=== PATIENT | female | born 1945 | race Caucasian/White ===

== ENCOUNTER → 2017-03-04 | Outpatient (CLI) | payer MEDICARE, OTHER ==
[~2017-03-04] MED LIST: AMBIEN 10MG10 MG PO; AMITRIPTYLINE H25 M1 PO; BUSPAR DIVIDOSE15 MG PO; CELEBREX 200MG200 MG PO; CLARITIN 1010 MG/TAB PO; FEMHRT LOW DOSE PO; FLONASEALLERGY NS; LEXAPRO20 MG PO; MACROBID 1100 MG/CAP PO; NEURONTIN300 MG/CAP PO; SYNTHROID0.05 MG/TA PO; ULTRAM 50MG TAB50 MG PO
== END ==
LOC: MC.RAD 10:40
DX: Z12.31 Encounter for screening mammogram for malignant neoplasm of breast (principal)

== ENCOUNTER → 2018-04-12 | Outpatient (CLI) | payer MEDICARE, OTHER | LOC: MC.RAD 10:23 | DX: Z12.31 Encounter for screening mammogram for malignant neoplasm of breast (principal); N64.89 Other specified disorders of breast ==

== ENCOUNTER → 2018-04-15 | Outpatient (CLI) | payer MEDICARE, OTHER | LOC: MC.RAD 09:30 | DX: N63.21 Unspecified lump in the left breast, upper outer quadrant (principal) ==

== ENCOUNTER → 2018-04-18 | Outpatient (CLI) | payer MEDICARE, OTHER | LOC: MC.RAD 12:53 | DX: N63.21 Unspecified lump in the left breast, upper outer quadrant (principal) ==

== ENCOUNTER 2018-05-09 07:04 | Day surgery (SDC) | payer MEDICARE, OTHER ==
[~2018-05-09] VITALS: Ht 165.1 cm; Wt 97.6 kg
[2018-05-09 09:25] VITALS: BP 159/78; PULSE 78; TEMP 98.9
[2018-05-09 15:05] VITALS: BP 127/47; PULSE 79; TEMP 97.2
[2018-05-09] MEDS ORDERED: NORCO 325 MG-51 TAB PO (15:14)
[2018-05-09 15:20] VITALS: BP 113/65; PULSE 77
[2018-05-09 15:35] VITALS: BP 109/51; PULSE 81
[2018-05-09 15:50] VITALS: BP 117/51; PULSE 79
[2018-05-16] MEDS ORDERED: PAZEO2.5 ML OU (11:20)
[2018-05-16] MEDS ORDERED: ASPIRIN 81M81 MG/TA2 PO (11:21)
== END 2018-05-09 16:58 | disposition home or self-care (01) ==
LOC: SDCO 07:04
DX: C50.412 Malignant neoplasm of upper-outer quadrant of left female breast (principal); C77.3 Secondary and unspecified malignant neoplasm of axilla and upper limb lymph nodes; E03.9 Hypothyroidism, unspecified; M19.90 Unspecified osteoarthritis, unspecified site; G89.29 Other chronic pain; E13.649 Other specified diabetes mellitus with hypoglycemia without coma; Z90.49 Acquired absence of other specified parts of digestive tract; Z82.49 Family history of ischemic heart disease and other diseases of the circulatory system; Z88.2 Allergy status to sulfonamides; Z85.828 Personal history of other malignant neoplasm of skin
CPT/HCPCS: A9541; J0690; J2250; J2405; J2704; J2795; J3010; J7120; Q9968

== ENCOUNTER → 2019-04-28 | Outpatient (CLI) | payer MEDICARE, OTHER ==
[~2019-04-28] MED LIST changes: +ASPIRIN 81M81 MG/TA2 PO; +NORCO 325 MG-51 TAB PO; +PAZEO2.5 ML OU
== END ==
LOC: MC.RAD 03-17 09:30
DX: Z85.3 Personal history of malignant neoplasm of breast (principal); Z92.3 Personal history of irradiation
CPT/HCPCS: G0279

== ENCOUNTER → 2019-12-14 | Outpatient (CLI) | payer MEDICARE, OTHER | LOC: MC.RAD 10:15 | DX: Z98.890 Other specified postprocedural states (principal) | CPT/HCPCS: G0279 ==

== ENCOUNTER 2020-02-24 10:44 | Emergency (ER) | payer MEDICARE, OTHER ==
[~2020-02-24] VITALS: Ht 165.1 cm; Wt 94.5 kg
[2020-02-24 10:44] VITALS: BP 181/79; TEMP 98.9
[2020-02-24] MEDS ORDERED: VALIUM 5MG T5 MG/TAB PO (12:45)
[2020-02-24] MEDS ORDERED: PERCOCET 325 MG1 TA2 PO (12:46)
[2020-02-24 14:04] VITALS: PULSE 78
== END 2020-02-24 14:04 | disposition home or self-care (01) ==
LOC: COL.ER 10:44
DX: M54.16 Radiculopathy, lumbar region (principal); Z90.49 Acquired absence of other specified parts of digestive tract; Z85.3 Personal history of malignant neoplasm of breast; Z79.51 Long term (current) use of inhaled steroids; Z79.82 Long term (current) use of aspirin; Z79.890 Hormone replacement therapy
CPT/HCPCS: J1100; J1170; J1885; J7040

== ENCOUNTER 2020-02-29 10:45 | Outpatient (RCR) | payer MEDICARE, OTHER ==
[~2020-02-29 10:45] MED LIST changes: +PERCOCET 325 MG1 TA2 PO; +VALIUM 5MG T5 MG/TAB PO
== END 2020-04-24 | disposition still patient (30) ==
LOC: MKS.ESL.PT
DX: M54.31 Sciatica, right side (principal)

== ENCOUNTER → 2020-04-29 | Outpatient (CLI) | payer MEDICARE, OTHER | LOC: MC.RAD 10:00 | DX: Z12.31 Encounter for screening mammogram for malignant neoplasm of breast (principal); Z98.890 Other specified postprocedural states; Z98.82 Breast implant status; Z92.3 Personal history of irradiation ==

== ENCOUNTER 2020-05-10 10:30 | Outpatient (RCR) | payer MEDICARE, OTHER | END 2020-05-17 10:34 | disposition home or self-care (01) | LOC: WSC 10:30 | DX: M51.26 Other intervertebral disc displacement, lumbar region (principal); M43.16 Spondylolisthesis, lumbar region; M48.061 Spinal stenosis, lumbar region without neurogenic claudication; M54.16 Radiculopathy, lumbar region ==

== ENCOUNTER 2020-07-17 15:56 | Outpatient (RCR) | payer MEDICARE, OTHER | END 2020-07-22 | LOC: WSC | DX: M51.16 Intervertebral disc disorders with radiculopathy, lumbar region (principal); M43.16 Spondylolisthesis, lumbar region; M48.061 Spinal stenosis, lumbar region without neurogenic claudication ==

== ENCOUNTER 2020-10-18 09:15 | Outpatient (RCR) | payer MEDICARE, OTHER | END 2020-10-22 | disposition home or self-care (01) | LOC: WSC | DX: M51.16 Intervertebral disc disorders with radiculopathy, lumbar region (principal) ==

== ENCOUNTER 2020-12-09 21:05 | Emergency (ER) | payer MEDICARE, OTHER ==
[~2020-12-09] VITALS: Ht 165.1 cm; Wt 92.7 kg
[2020-12-09 21:10] VITALS: TEMP 97.2
[2020-12-09] MEDS ORDERED: FLEXERIL5 MG PO (23:29)
[2020-12-09 23:36] VITALS: BP 146/70; PULSE 80
== END 2020-12-09 23:36 | disposition home or self-care (01) ==
LOC: COL.ER 21:05
DX: M54.6 Pain in thoracic spine (principal); M62.830 Muscle spasm of back; E07.9 Disorder of thyroid, unspecified; G47.00 Insomnia, unspecified; Z79.891 Long term (current) use of opiate analgesic; Z79.890 Hormone replacement therapy; Z79.82 Long term (current) use of aspirin
CPT/HCPCS: J1885

== ENCOUNTER 2021-06-23 15:29 | Emergency (ER) | payer MEDICARE, OTHER ==
[~2021-06-23] VITALS: Ht 165.1 cm; Wt 90.9 kg
[~2021-06-23 15:29] MED LIST changes: +FLEXERIL5 MG PO
[2021-06-23 15:59] VITALS: TEMP 98.3
[2021-06-23 16:39] LABS: BASO % 0.5 % (0.0-2.0); EOS # 0.1 K/mm3 (0.0-0.7); EOS % 1.6 % (0-4.0); GRAN # 4.1 K/mm3 (1.4-6.5); GRAN % 74.4 % (42.2-75.2); HEMATOCRIT 40.6 % (37.0-47.0); HEMOGLOBIN 13.3 g/dl (12.5-16.0); LYMPH # 0.7 K/mm3 (1.2-3.4); LYMPH % 13.5 % (20.0-51.0); MEAN CELL VOLUME 93 fl (80.0-100.0); MEAN CORPUSCULAR HEMOGLOBIN 31 pg (27.0-31.0); MEAN CORPUSCULAR HGB CONC 33 g/dl (33.0-37.0); MONO # 0.5 K/mm3 (0.1-0.6); MONO % 9.8 % (1.7-9.3); PLATELET COUNT 176 K/mm3 (130-400); RED BLOOD COUNT 4.35 M/mm3 (4.10-5.30); REDCELL DISTRIBUTION WIDTH-CV 13.4 % (11.5-14.5)
[2021-06-23 17:04] LABS: ALANINE AMINOTRANSFERASE 15 U/L (0-55); ALBUMIN 3.9 gm/dL (3.4-4.8); ALKALINE PHOSPHATASE 90 U/L (40-150); ANION GAP 9 mmol/L (7-16); AST,SGOT 16 U/L (5-34); BILIRUBIN,TOTAL 0.3 mg/dL (0.2-1.2); BLOOD UREA NITROGEN 32 mg/dL (10-20); C-REACTIVE PROTEIN 0.16 mg/dL (0.00-0.50); CARBON DIOXIDE 25 mmol/L (23-31); CHLORIDE 104 mmol/L (98-107); CREATININE, serum 0.78 mg/dL (0.57-1.11); GLUCOSE 107 mg/dL (70-99); POTASSIUM 4.1 mmol/L (3.5-4.5); SODIUM 138 mmol/L (136-145)
[2021-06-23 17:17] LABS: TROPONIN-I < 0.010 ng/mL (0.00-0.033)
[2021-06-23 20:17] VITALS: BP 184/79; PULSE 65
== END 2021-06-23 20:17 | disposition home or self-care (01) ==
LOC: COL.ER 15:29
PROVIDERS: Family Medicine
DX: M62.830 Muscle spasm of back (principal); R42 Dizziness and giddiness; Z20.822 Contact with and (suspected) exposure to COVID-19
CPT/HCPCS: J7120

== ENCOUNTER 2021-09-11 11:15 | Outpatient (RCR) | payer MEDICARE, OTHER | END 2021-09-15 | disposition home or self-care (01) | LOC: MKS.ESL.PT | DX: R42 Dizziness and giddiness (principal); R53.1 Weakness ==

== ENCOUNTER → 2021-10-13 | Outpatient (CLI) | payer MEDICARE, OTHER | LOC: MC.RAD 11:00 | DX: Z12.31 Encounter for screening mammogram for malignant neoplasm of breast (principal) ==

== ENCOUNTER → 2021-10-16 | Outpatient (RCR) | payer MEDICARE, OTHER | END | disposition home or self-care (01) | LOC: MKS.ESL.PT | DX: R42 Dizziness and giddiness (principal); R53.1 Weakness ==

== ENCOUNTER 2021-11-13 12:45 | Outpatient (RCR) | payer MEDICARE, OTHER | END 2021-11-15 | disposition home or self-care (01) | LOC: MKS.ESL.PT | DX: R42 Dizziness and giddiness (principal); R53.81 Other malaise ==

== ENCOUNTER → 2021-12-09 13:03 | Outpatient (RCR) | payer MEDICARE, OTHER ==
[~2021-12-09 13:03] MED LIST changes: +ANUSOL-HC SUPPO25 MG RC
== END | disposition home or self-care (01) ==
LOC: MKS.ESL.PT 11-16 13:30
DX: R42 Dizziness and giddiness (principal); R53.1 Weakness; R53.81 Other malaise

== ENCOUNTER 2022-01-22 21:59 | Emergency (ER) | payer MEDICARE, OTHER ==
[~2022-01-22] VITALS: Ht 165.1 cm; Wt 90.0 kg
[~2022-01-22 21:59] MED LIST changes: -ANUSOL-HC SUPPO25 MG RC
[2022-01-22 22:51] LABS: BASO % 0.7 % (0.0-2.0); EOS # 0.1 K/mm3 (0.0-0.7); EOS % 2.7 % (0.0-4.0); GRAN # 2.7 K/mm3 (1.4-6.5); GRAN % 60.1 % (42.2-75.2); HEMOGLOBIN 11.4 g/dl (12.5-16.0); LYMPH # 1.1 K/mm3 (1.2-3.4); LYMPH % 23.7 % (20.0-51.0); MEAN CELL VOLUME 94 fl (80.0-100.0); MEAN CORPUSCULAR HEMOGLOBIN 31 pg (27-31); MEAN CORPUSCULAR HGB CONC 33 g/dl (33.0-37.0); MEAN PLATELET VOLUME 9.7 fl (7.4-10.4); MONO # 0.6 K/mm3 (0.1-0.6); MONO % 12.6 % (1.7-9.3); PLATELET COUNT 158 K/mm3 (130-400); REDCELL DISTRIBUTION WIDTH-CV 14.2 % (11.5-14.5)
[2022-01-22 22:52] LABS: HEMATOCRIT 34.9 % (37.0-47.0)
[2022-01-22 23:09] LABS: ALBUMIN 3.4 gm/dL (3.4-4.8); BILIRUBIN,TOTAL 0.2 mg/dL (0.2-1.2); C-REACTIVE PROTEIN 0.14 mg/dL (0.00-0.50); CALCIUM 8.8 mg/dL (8.4-10.2); CREATININE, serum 0.84 mg/dL (0.57-1.11); POTASSIUM 4.1 mmol/L (3.5-4.5); TOTAL PROTEIN 6.4 gm/dL (6.2-8.1)
[2022-01-23] MEDS ORDERED: ANUSOL-HC SUPPO25 MG RC (01:14)
[2022-01-23 01:26] VITALS: BP 162/83; PULSE 85; TEMP 98.1
== END 2022-01-23 01:31 | disposition home or self-care (01) ==
LOC: COL.ER 21:59
PROVIDERS: Emergency Medicine
DX: K64.9 Unspecified hemorrhoids (principal); Z28.310 Unvaccinated for COVID-19
CPT/HCPCS: J2270; J2405; J7030; Q9967